=== PATIENT | female | born 1980 | race Asian ===

== ENCOUNTER 2017-05-09 00:10 | Inpatient (IN) | payer SELFPAY ==
[~2017-05-09] VITALS: Ht 162 cm; Wt 74.8 kg
[2017-05-09] MEDS ORDERED: LACTATED RINGERS 1,000 ML IV SCH (01:04)
[2017-05-09 02:00] LABS: BASOPHILS # (AUTO) 0.1 K/uL (0.00-0.22); BASOPHILS % (AUTO) 0.8 % (0.0-2.0); EOSINOPHILS # (AUTO) 0.2 K/uL (0-0.4); EOSINOPHILS % (AUTO) 2.6 % (0.0-4.0); HEMATOCRIT 35.4 % (36-48); HEMOGLOBIN 11.5 g/dL (12.0-16.0); LYMPHOCYTES # (AUTO) 1.7 K/uL (2.5-16.5); LYMPHOCYTES % (AUTO) 21.6 % (20.5-51.1); MEAN CORPUSCULAR HEMOGLOBIN 28 pg (27-31); MEAN CORPUSCULAR HGB CONC 33 g/dL (33-37); MEAN CORPUSCULAR VOLUME 85 fL (80-94); MONOCYTES # (AUTO) 0.7 K/uL (0.8-1.0); MONOCYTES % (AUTO) 8.6 % (1.7-9.3); NEUTROPHILS % (AUTO) 66.4 % (42.2-75.2); PLATELET COUNT (AUTO) 190 K/uL (140-450); RED BLOOD CELL COUNT(AUTO) 4.17 MIL/uL (4.20-5.40); WHITE BLOOD COUNT (AUTO) 7.7 K/uL (4.8-10.8)
[2017-05-09 02:12] LABS: APPEARANCE,URINE SL CLOUDY (CLEAR); BILIRUBIN,URINE NEGATIVE (NEGATIVE); BLOOD, URINE NEGATIVE (NEGATIVE); COLOR,URINE YELLOW (YELLOW); LEUKOCYTE ESTERASE ,URINE 2+ (NEGATIVE); NITRITE, URINE NEGATIVE (NEGATIVE); PH,URINE 5.5 (5.0-9.0); PROTEIN,URINE NEGATIVE (NEGATIVE); UGLUCOSE NEGATIVE (NEGATIVE); UROBILINOGEN,URINE 0.2 EU/dL (0.2 - 1)
[2017-05-09 02:51] LABS: BACTERIA,URINE 4+ /HPF (None Seen); RBC,URINE 0-5 (RARE) /HPF (0-5)
[2017-05-09 02:53] LABS: HIV RAPID SCREEN NON-REACTIVE (NON REACTIV)
[2017-05-09] MEDS ORDERED: DOCO100C PO (02:53)
[2017-05-09] MEDS ORDERED: FERR325E14 PO (02:53)
[2017-05-09 02:58] VITALS: BP 131/81
[2017-05-09] MEDS ORDERED: CITRIC ACID/SODIUM CITRATE 30 ML UDC PO SCH (03:00)
[2017-05-09] MEDS ORDERED: CITRIC ACID/SODIUM CITRATE 30 ML UDC ONE (04:24)
[2017-05-09] MEDS ORDERED: ceFAZolin 1,000 MG VIAL ONE (04:25)
[2017-05-09] MEDS ORDERED: ePHEDrine 50 MG/ML VIAL ONE (04:50)
[2017-05-09] MEDS ORDERED: BUPIVACAINE-MPF 0.75% 10 ML VIAL INJ ONE (04:50)
[2017-05-09] MEDS ORDERED: ONDANSETRON 4 MG/2 ML VIAL ONE (04:50)
[2017-05-09] MEDS ORDERED: OXYTOCIN 10 UNITS/ML VIAL ONE ×2 (04:50→05:07)
[2017-05-09] MEDS ORDERED: MIDAZOLAM 2 MG/2 ML VIAL ONE (05:03)
[2017-05-09] MEDS ORDERED: KETAMINE 500 MG/5 ML VIAL ONE (05:04)
[2017-05-09] MEDS ORDERED: fentaNYL 0.05 MG/ML VIAL ONE (05:04)
[2017-05-09] MEDS ORDERED: MORPHINE PRES FREE 10 MG/10 ML AMP IV ONE (05:04)
[2017-05-09] MEDS ORDERED: TRIAMCINOLONE 10 MG/ML 5ML VIAL ONE (05:07)
[2017-05-09] MEDS ORDERED: ceFAZolin 1,000 MG VIAL IVP ONE (05:10)
[2017-05-09] MEDS ORDERED: MIDAZOLAM 2 MG/2 ML VIAL IV SCH (05:40)
[2017-05-09] MEDS ORDERED: MORPHINE SULFATE 2 MG/ML SYR IVP PRN (05:40)
[2017-05-09] MEDS ORDERED: METOCLOPRAMIDE 10 MG/2 ML INJ VIAL IVP PRN (05:40)
[2017-05-09] MEDS ORDERED: MORPHINE SULFATE 4 MG/ML SYR IVP PRN ×2 (05:40)
[2017-05-09] MEDS ORDERED: TRIMETHOBENZAMIDE 200 MG/2 ML SYR IM PRN (07:15)
[2017-05-09] MEDS ORDERED: METHYLERGONOVINE 0.2 MG/ML AMP IM PRN (07:15)
[2017-05-09] MEDS ORDERED: MEASLES, MUMPS, AND RUBELLA 1 VIAL SQVAC PRN (07:15)
[2017-05-09] MEDS ORDERED: ONDANSETRON 4 MG/2 ML VIAL IVP PRN (07:35)
[2017-05-09] MEDS ORDERED: diphenhydrAMINE 50 MG/ML VIAL IVP PRN (07:35)
[2017-05-09] MEDS ORDERED: KETOROLAC 30 MG/ML VIAL IVP PRN (07:35)
--- NOTE | 2017-05-09 08:34 | NUR ---
PATIENT HAS BEEN SCREENED AND CATEGORIZED LOW NUTRITION RISK. PATIENT WILL BE SEEN WITHIN 7 DAYS OF ADMISSION. 05/15/[address]
[2017-05-09] MEDS: OXYTOCIN 20 UNITS/LR PREMIX 1,000 ML IV SCH ×3 (11:03→18:13)
[2017-05-09 13:45] LABS: RAPID PLASMA REAGIN NON-REACTIVE (Non Reactiv)
[2017-05-09] MEDS ORDERED: TEMAZEPAM 15 MG CAP PO PRN (23:30)
[2017-05-09] MEDS ORDERED: oxyCODONE/APAP 5/325 MG 1 TAB TAB PO PRN (23:30)
[2017-05-10] MEDS: OXYTOCIN 20 UNITS/LR PREMIX 1,000 ML IV SCH (01:04)
[2017-05-10] MEDS: IBUPROFEN 800 MG TAB PO PRN ×2 (05:30→15:09)
[2017-05-10 06:53] LABS: HEMATOCRIT 31.7 % (36-48); HEMOGLOBIN 10.4 g/dL (12.0-16.0); MEAN CORPUSCULAR HEMOGLOBIN 28 pg (27-31); MEAN CORPUSCULAR HGB CONC 33 g/dL (33-37); MEAN CORPUSCULAR VOLUME 85 fL (80-94); PLATELET COUNT (AUTO) 176 K/uL (140-450); RED BLOOD CELL COUNT(AUTO) 3.74 MIL/uL (4.20-5.40); WHITE BLOOD COUNT (AUTO) 11.9 K/uL (4.8-10.8)
[2017-05-10 09:47] LABS: BAND % (MANUAL) 4 % (0-8); EOSINOPHILS % (MANUAL) 1 % (0-4); LYMPHOCYTES % (MANUAL) 11 % (20-46); MONOCYTES % (MANUAL) 4 % (5-12); NEUTROPHILS % (MANUAL) 80 (43-65)
[2017-05-10 09:48] LABS: PLATELET ESTIMATE ADEQUATE
[2017-05-10] MEDS: HYDROcodone/APAP 5/325 MG 1 TAB TAB PO PRN ×2 (10:16→20:38)
[2017-05-10] MEDS: DOCUSATE SOD/SENNA 50/8.6 MG 1 TAB PO SCH (20:38)
[2017-05-10] MEDS: SIMETHICONE 80 MG TAB.CHEW PO PRN (20:39)
[2017-05-11] MEDS: HYDROcodone/APAP 5/325 MG 1 TAB TAB PO PRN (03:46)
[2017-05-11] MEDS: IBUPROFEN 800 MG TAB PO PRN ×3 (08:20→20:47)
[2017-05-11] MEDS ORDERED: DOCUSATE SOD/SENNA 50/8.6 MG 1 TAB ONE (20:46)
[2017-05-11] MEDS: DOCUSATE SOD/SENNA 50/8.6 MG 1 TAB PO SCH (20:47)
[2017-05-11] MEDS: SIMETHICONE 80 MG TAB.CHEW PO PRN (20:47)
[2017-05-12] MEDS: IBUPROFEN 800 MG TAB PO PRN (03:27)
[2017-05-12] MEDS ORDERED: IBUP-2213 PO (09:19)
== END 2017-05-12 12:20 | disposition home or self-care (01) | DRG 766 ==
LOC: MLD 00:10 → MFCC 06:55
PROVIDERS: ADMIT Obstetrics & Gynecology; ATTEND Obstetrics & Gynecology
PROC: 10D00Z1 Extraction of Products of Conception, Low, Open Approach (ICD-10-PCS; principal; 2017-05-11)
PROC: 3E0234Z Introduction of Serum, Toxoid and Vaccine into Muscle, Percutaneous Approach (ICD-10-PCS; 2017-05-11)
DX: O34.211 Maternal care for low transverse scar from previous cesarean delivery (principal); O09.523 Supervision of elderly multigravida, third trimester; Z23 Encounter for immunization; Z37.0 Single live birth; Z3A.39 39 weeks gestation of pregnancy
CPT/HCPCS: 36415; 51702; 81001; 85025; 86592; 86886; 86900; 86901; 87086; 90707; 90715; J0690; J1885; J2250; J2270; J2405; J2590; J3010; J3301; J3490; J7060; J7120